=== PATIENT | male | born 1965 | race Caucasian/White ===

== ENCOUNTER 2022-05-27 21:45 | Inpatient (IN) | payer OTHER ==
[~2022-05-27] VITALS: Ht 182.9 cm; Wt 85.7 kg
[2022-05-27] MEDS ORDERED: IV NS 0.9% 1,000 ML BAG IV ONE (22:00)
--- NOTE | 2022-05-27 22:08 | NUR ---
Patient bibra from home, high blood glucose, reading high n the glucometer. On room air, breathing evenly and unlabored. Alert and oriented x 4, verbally responsive and able to make needs known. IV intact and patent, blood drawned and sent to lab. connected to the monitor and pulse ox. Will continue to monitor accoridngly.
[2022-05-27 22:17] LABS: BASOPHILS # (AUTO) 0.1 K/uL (0.0-0.2); BASOPHILS % (AUTO) 0.6 % (0.0-2.0); EOSINOPHILS % (AUTO) 1.2 % (0.0-6.0); HEMATOCRIT 41 % (39-51); HEMOGLOBIN 12.9 g/dL (13.5-17.5); LYMPHOCYTES # (AUTO) 2.1 K/uL (0.8-4.8); LYMPHOCYTES % (AUTO) 17.8 % (20.0-44.0); MEAN CORPUSCULAR HGB CONC 32 g/dl (31.0-36.0); MEAN CORPUSCULAR VOLUME 84 fL (80-96); MONOCYTES # (AUTO) 1.1 K/uL (0.1-1.30); MONOCYTES % (AUTO) 9.3 % (2.0-12.0); NEUTROPHILS # (AUTO) 8.4 K/uL (1.8-8.9); NEUTROPHILS % (AUTO) 71.1 % (43.0-81.0); PLATELET COUNT (AUTO) 258 K/uL (150-450); RED BLOOD CELL COUNT(AUTO) 4.88 MIL/uL (4.5-6.0); WHITE BLOOD COUNT (AUTO) 11.8 K/uL (4.3-11.0)
[2022-05-27 22:35] LABS: ALANINE AMINOTRANSFERASE 92 U/L (12-78); ALBUMIN 2.8 g/dL (3.4-5.0); ALKALINE PHOSPHATASE 403 U/L (46-116); ASPARTATE AMINOTRANSFERASE 49 U/L (15-37); BILIRUBIN,DIRECT 0.1 mg/dL (0.0-0.2); BILIRUBIN,TOTAL 0.5 mg/dL (0.2-1.0); CALCIUM, SERUM 8.2 mg/dL (8.5-10.1); CARBON DIOXIDE 26 mmol/L (21-32); CHLORIDE 81 mmol/L (98-107); CREATININE 1.5 mg/dL (0.6-1.3); LIPASE 302 U/L (73-393); POTASSIUM 4.9 mmol/L (3.5-5.1); TOTAL PROTEIN, SERUM 7.1 g/dL (6.4-8.2); UREA NITROGEN, BLOOD 52 mg/dL (7-18)
[2022-05-27 22:41] LABS: ABG BASE EXCESS -2.8 mmol/L; ABG PCO2 41.3 mmHg (35.0-45.0); ABG PH 7.355 (7.350-7.450); ABG PO2 79.9 mmHg (75.0-100.0); COHb 0.6 % (0.5-1.5); MetHb 0.3 % (0.0-1.5); O2Hb 93.2 % (94.0-97.0); SITE, ABG Right Radial; VENT MODE, BG ROOM AIR
[2022-05-27 22:41] LABS: SODIUM SERUM 113 mmol/L (136-145)
[2022-05-27 22:42] LABS: GLUCOSE > 500 mg/dL (74-106)
--- NOTE | 2022-05-27 22:58 | NUR ---
urine collected and sent to lab.
[2022-05-27] MEDS ORDERED: INSULIN REGULAR, HUMAN 100 UNIT/ML 10 ML VIAL ONE (22:59)
[2022-05-27] MEDS ORDERED: INSULIN REGULAR, HUMAN 100 UNIT/ML 10 ML VIAL SQ ONE (23:00)
[2022-05-27 23:28] LABS: BILIRUBIN,URINE NEGATIVE (NEGATIVE); COLOR,URINE YELLOW (YELLOW); LEUKOCYTE ESTERASE ,URINE NEGATIVE (NEGATIVE); NITRITE, URINE POSITIVE (NEGATIVE); PROTEIN,URINE NEGATIVE (NEGATIVE); UGLUCOSE 3+ mg/dL (NEGATIVE); UROBILINOGEN,URINE 0.2 EU/dL (0.2)
[2022-05-27 23:42] LABS: BACTERIA,URINE Rare /HPF (None Seen); RBC,URINE 0-2 /HPF (0-2); SQUAMOUS EPITHELIAL CELL,UR Few /HPF (None Seen); WBC,URINE 0-2 /HPF (0-3)
[2022-05-28] VITALS (19 sets, daily range): BP systolic 108–156; BP diastolic 56–99
[2022-05-28] MEDS ORDERED: IV NS 0.9% 1,000 ML BAG IV ONE (00:30)
[2022-05-28] MEDS ORDERED: ACETAMINOPHEN 325 MG TABLET PO PRN (01:00)
[2022-05-28] MEDS ORDERED: IV NS 0.9% 1,000 ML IV PRN (01:00)
[2022-05-28] MEDS ORDERED: DEXTROSE 50%-WATER 50 ML DISP.SYRIN IV PRN ×2 (01:00→13:30)
[2022-05-28] MEDS ORDERED: ZOLPIDEM TARTRATE 5 MG TABLET PO PRN (01:00)
[2022-05-28] MEDS ORDERED: MAG HYDROX/AL HYDROX/SIMETH 30 ML UDC PO PRN (01:00)
[2022-05-28] MEDS ORDERED: MAGNESIUM HYDROXIDE 30 ML UDC PO PRN (01:00)
[2022-05-28] MEDS ORDERED: ONDANSETRON HCL/PF 4 MG/2 ML VIAL IVP PRN (01:00)
[2022-05-28] MEDS ORDERED: Z GUARD REMEDY 4 OZ OINT TP PRN (01:00)
[2022-05-28 01:15] LABS: CHOLESTEROL 171 mg/dL (<200); HDL CHOLESTEROL 35 mg/dL (40-60); LDL 91 mg/dL (0-99); TRIGLYCERIDES 448 mg/dL (30-150)
--- NOTE | 2022-05-28 02:05 | NUR ---
icu 254
--- NOTE | 2022-05-28 03:04 | NUR ---
wheeled patient via gurney accpanied by RN and emet in no distress. RN assigned at bedside to continue care.
[2022-05-28] MEDS: IV NS 0.9% 1,000 ML IV PRN ×2 (03:26→09:08)
[2022-05-28] MEDS: BLOOD SUGAR DIAGNOSTIC 1 EACH STRIP IN SCH ×6 (05:00→22:51)
[2022-05-28 05:03] LABS: BASOPHILS # (AUTO) 0.1 K/uL (0.0-0.2); BASOPHILS % (AUTO) 0.4 % (0.0-2.0); EOSINOPHILS % (AUTO) 1.9 % (0.0-6.0); HEMATOCRIT 37 % (39-51); HEMOGLOBIN 12.3 g/dL (13.5-17.5); LYMPHOCYTES # (AUTO) 4.1 K/uL (0.8-4.8); LYMPHOCYTES % (AUTO) 29.1 % (20.0-44.0); MEAN CORPUSCULAR HGB CONC 33 g/dl (31.0-36.0); MEAN CORPUSCULAR VOLUME 80 fL (80-96); MONOCYTES # (AUTO) 1.2 K/uL (0.1-1.30); MONOCYTES % (AUTO) 8.3 % (2.0-12.0); NEUTROPHILS # (AUTO) 8.5 K/uL (1.8-8.9); NEUTROPHILS % (AUTO) 60.3 % (43.0-81.0); PLATELET COUNT (AUTO) 268 K/uL (150-450); RED BLOOD CELL COUNT(AUTO) 4.68 MIL/uL (4.5-6.0); WHITE BLOOD COUNT (AUTO) 14.1 K/uL (4.3-11.0)
[2022-05-28 05:22] LABS: CALCIUM, SERUM 8.6 mg/dL (8.5-10.1); PHOSPHORUS 3.5 mg/dL (2.5-4.9); POTASSIUM 4.3 mmol/L (3.5-5.1)
[2022-05-28] MEDS: INSULIN REGULAR, HUMAN 100 UNIT/ML 3 ML VIAL SQ PRN ×3 (06:16→16:41)
--- NOTE | 2022-05-28 07:00 | NUR ---
CHILD LIFE THERAPIST OPENING NOTES: RECEIVED PT IN BED ASLEEP A/O X 4 ON ROOM AIR O2SAT 99% NO SOB NOTED.BREATHING EVEN AND UNLABORED,SINUS RHYTHM ON MONITOR, IV ACCESS ON LFA #18 G AND RAC #18 G PATENT AND FLUSHING WELL, IV NS RUNNING AT 200 ML/HR, SAFETY MEASURES IN PLACE, BED IN LOW AND LOCKED POSITION,SR UP X 2, CALL LIGHT WITHIN REACH, WILL CONTINUE TO MONITOR
--- NOTE | 2022-05-28 07:34 | NUR ---
RN NOTES: WHILE PT IS ASLEEP HE MOVED HIS LEFT ARM, IV LINE CAME OUT ACCIDENTALLY, USED RIGHT AC IV ACCESS TO RUN THE IV FLUIDS
[2022-05-28] MEDS ORDERED: PANTOPRAZOLE 40 MG VIAL IV SCH (09:00)
[2022-05-28] MEDS: INSULIN GLARGINE, 100 UNIT/ML CARTRIDGE SQ SCH ×2 (09:04→22:29)
[2022-05-28] MEDS ORDERED: INSU100V7 SQ (11:02)
[2022-05-28] MEDS ORDERED: INSU100V3 SQ (11:02)
--- NOTE | 2022-05-28 13:08 | NUR ---
RN NOTES: BLOOD SUGAR CHECKED 57 MG/DL.REPEATED TEST 60 MG/DL ,D50% IV GIVEN AND LEFT MESSAGE TO DR EMILIA ZARATE
--- NOTE | 2022-05-28 13:10 | NUR ---
PER NURSING DIAGNOSTIC ASSISTANT NADIR, SPOKE TO DR. EMILIA WILKINS, PATIENT STABLE TO TRANSFER MEDICAL FLOOR.
[2022-05-28] MEDS ORDERED: IV D5/0.45 NACL 1,000 ML IV PRN (13:30)
[2022-05-28] MEDS ORDERED: *INSULIN REGULAR(HUMULIN R)HUM 100 UNIT/ML VIAL SQ PRN (13:30)
[2022-05-28] MEDS: IV D5/ 0.9% NACL 1,000 ML IV PRN (13:51)
--- NOTE | 2022-05-28 14:19 | NUR ---
RN NOTES: RECHECKED BLOOD SUGAR 140 MG/DL, CHARGE NURSE CHANGED IV FLUID TO D5NS AT 100 ML/HR RUNNING, TRANSFERRED PT TO MED SURG ROOM 117-1, REPORT AND BELONGING GIVEN TO AFSANEH VERA, DR EMILIA MACIAS FOR WOUND CONSULT DUE TO RIGHT FOOT WOUND
--- NOTE | 2022-05-28 14:25 | NUR ---
RN NOTE RECEIVED PATIENT FROM ICU @1415 TRANSPORTED VIA BED, ACCOMPANIED BY CHUY CORTES. PATIENT IS AWAKE, A/O X4, VERBALLY RESPONSIVE AND ABLE TO MAKE NEEDS KNOWN. ON ROOM AIR, NO SOB NOTED, BREATHING EVEN AND UNLABORED. DENIES ANY PAIN AT THIS TIME. NOTED WITH PERIPHERAL LINE ON LEFT FOREARM #22G, INTACT AND PATENT WITH D5NS @100ML/HR RUNNING. ALL BELONGINGS ACCOUNTED FOR. VITAL SIGNS TAKEN AND RECORDED. NOTED WITH RIGHT PLANTAR WOUND, WOUND CARE CONSULT IN PLACE. ROUTINE ADMISSION CARE RENDERED. SAFETY MEASURE IN PLACE. BED IN LOW AND LOCKED POSITION, BED ALARM ON, SIDE RAILS UP X2, CALL LIGHT PLACED WITHIN EASY REACH. WILL CONTINUE TO MONITOR PATIENT.
[2022-05-28] MEDS ORDERED: BLOOD SUGAR DIAGNOSTIC 1 EACH STRIP VI SCH (17:30)
--- NOTE | 2022-05-28 18:49 | NUR ---
RN CLOSING NOTE PATIENT RESTING COMFORTABLY IN BED. A/O X4, VERBALLY RESPONSIVE AND ABLE TO MAKE NEEDS KNOWN. ON ROOM AIR, BREATHING EVEN AND UNLABORED. DENIES ANY PAIN AT THIS TIME. IV LINE ON LEFT FOREARM #22G, INTACT AND PATENT WITH D5NS @100ML/HR RUNNING. SAFETY MEASURE MAINTAINED, BED IN LOW AND LOCKED POSITION, BED ALARM ON. SIDE RAILS UP X2, CALL LIGHT PLACED WITHIN EASY REACH. WILL ENDORSE TO NEXT SHIFT FOR CONTINUITY OF CARE.
--- NOTE | 2022-05-28 19:45 | NUR ---
MS RN OPENING NOTE RECEIVED PATIENT IN BED; AWAKE, ALERT AND ORIENTED X 4. ON ROOM AIR; TOLERATING WELL SATURATING @ 97%. AFEBRILE. NOT IN ANY FORM OF RESPIRATORY OR CARDIAC DISTRESS. NO C/O ANY PAIN OR DISCOMFORT. WITH IV ACCESS ON LEFT FOREARM 22g; PATENT AND INTACT RUNNING WITH D5 NS 1L REGULATED @ 100 ML/HR; FLUSHES WELL. SAFETY PRECAUTIONS IMPLEMENTED: CALL LIGHT AND TABLE WITHIN REACH, SIDE RAILS UP X 2, BED IN LOWEST LOCKED POSITION. WILL CONTINUE TO MONITOR THROUGHOUT SHIFT.
[2022-05-28] MEDS ORDERED: DESMOPRESSIN 4 MCG/ML AMPUL SQ STA ×2 (20:16→22:54)
--- NOTE | 2022-05-28 22:21 | NUR ---
RN NOTE BLOOD SUGAR CHECKED: 471 MG/DL. RECHECKED AGAIN WITH RESULT OF 546 MG/DL. CALLED AND NOTIFIED SPECIAL SERVICE OFFICER HOSPITALIST RAMYA CHAU NP. WITH ORDER TO GIVE 15 UNITS REGULAR INSULIN SQ. WILL CARRY OUT.
--- NOTE | 2022-05-28 22:25 | NUR ---
RN NOTE BS: 546 MG/DL. 15 UNITS OF REGULAR INSULIN GIVEN SQ AND 11 UNITS GIVEN SQ @ 2229. KEPT COMFORTABLE IN BED. WILL CONTINUE TO MONITOR.
[2022-05-28] MEDS ORDERED: DESMOPRESSIN 4 MCG/ML AMPUL ONE (23:19)
[2022-05-29 05:00] VITALS: BP 135/76
[2022-05-29] MEDS: IV D5/ 0.9% NACL 1,000 ML IV PRN (06:28)
[2022-05-29 06:50] LABS: BASOPHILS # (AUTO) 0.1 K/uL (0.0-0.2); BASOPHILS % (AUTO) 0.4 % (0.0-2.0); EOSINOPHILS % (AUTO) 1.8 % (0.0-6.0); HEMATOCRIT 37 % (39-51); HEMOGLOBIN 12.2 g/dL (13.5-17.5); LYMPHOCYTES # (AUTO) 4.2 K/uL (0.8-4.8); LYMPHOCYTES % (AUTO) 33.1 % (20.0-44.0); MEAN CORPUSCULAR HGB CONC 33 g/dl (31.0-36.0); MEAN CORPUSCULAR VOLUME 80 fL (80-96); MONOCYTES # (AUTO) 0.9 K/uL (0.1-1.30); MONOCYTES % (AUTO) 7.4 % (2.0-12.0); NEUTROPHILS # (AUTO) 7.3 K/uL (1.8-8.9); NEUTROPHILS % (AUTO) 57.3 % (43.0-81.0); PLATELET COUNT (AUTO) 266 K/uL (150-450); RED BLOOD CELL COUNT(AUTO) 4.62 MIL/uL (4.5-6.0); WHITE BLOOD COUNT (AUTO) 12.8 K/uL (4.3-11.0)
--- NOTE | 2022-05-29 06:54 | NUR ---
MS RN CLOSING NOTE PATIENT IN BED; AWAKE, A/O X 4. STABLE ON ROOM AIR. IN NO ACUTE DISTRESS. WITH IV ACCESS ON LEFT FOREARM 22g; PATENT AND INTACT RUNNING WITH D5 NS 1L REGULATED @ 100 ML/HR; FLUSHING WELL. SAFETY PRECAUTIONS IN PLACE: CALL LIGHT AND TABLE WITHIN REACH, SIDE RAILS UP X 2, BED IN LOWEST LOCKED POSITION. ENDORSED TO MORNING SHIFT FOR TUCKER.
[2022-05-29 07:19] LABS: CALCIUM, SERUM 8.4 mg/dL (8.5-10.1); CREATININE 0.9 mg/dL (0.6-1.3); MAGNESIUM 1.8 mg/dL (1.8-2.4); PHOSPHORUS 3.1 mg/dL (2.5-4.9); POTASSIUM 3.8 mmol/L (3.5-5.1)
--- NOTE | 2022-05-29 07:20 | NUR ---
AUTOMOBILE INSPECTOR OPENING NOTES Received pt awake in bed AOx4. No complaints of pain or discomfort at this time. Pt is on RA and tolerating it well. IV access on LFA 22G running D5 NS @ 100cc/hr. HOB elevated to pts comfort. Siderails up at all times x2. Call light within reach. Will continue to monitor.
[2022-05-29] MEDS: BLOOD SUGAR DIAGNOSTIC 1 EACH STRIP IN SCH ×3 (07:52→16:53)
[2022-05-29 08:00] VITALS: BP 134/77
[2022-05-29] MEDS: INSULIN GLARGINE, 100 UNIT/ML CARTRIDGE SQ SCH (08:14)
[2022-05-29] MEDS: INSULIN REGULAR, HUMAN 100 UNIT/ML 3 ML VIAL SQ PRN ×3 (08:17→16:54)
--- NOTE | 2022-05-29 08:37 | NUR ---
WOUND CARE CONSULT: PT PRESENTS WITH RT PLANTAR FOOT ULCER, PRESENT ON ADMISSION. DR ADAMS CALLED FOR DPM CONSULT. IN AGREEMENT WITH PLAN OF CARE.
--- NOTE | 2022-05-29 12:46 | NUR ---
SOLVENT RECOVERER NOTES Dr. Cash finished debridement on pt right plantar foot wound. Tolerated procedure well.
[2022-05-29 16:00] VITALS: BP 136/74
--- NOTE | 2022-05-29 17:20 | NUR ---
PROPERTY DISPOSAL MANAGER NOTES Pt discharged to home with daughter. Daughter Елена came with to pic up pt. Discharge paperwork given to pt. Explained the importance of a good diabetic diet and insulin and pt verbalized understanding. IV access taken out.
[2022-05-30] MEDS ORDERED: PANTOPRAZOLE 40 MG TABLET.DR PO SCH (07:30)
[2022-05-30] MEDS ORDERED: THERAHONEY GEL 1.5 OZ TUBE TP SCH (09:00)
== END 2022-05-29 17:05 | disposition home or self-care (01) | DRG 951 ==
LOC: ER 21:47 → ICU 05-28 02:16 → MEDSG1 05-28 13:54
PROVIDERS: ADMIT Nurse Practitioner Acute Care
PROC: 0KBV0ZZ Excision of Right Foot Muscle, Open Approach (ICD-10-PCS; principal; 2022-05-29)
DX: E11.00 Type 2 diabetes mellitus with hyperosmolarity without nonketotic hyperglycemic-hyperosmolar coma (NKHHC) (principal); N17.0 Acute kidney failure with tubular necrosis; E11.621 Type 2 diabetes mellitus with foot ulcer; E11.42 Type 2 diabetes mellitus with diabetic polyneuropathy; E87.1 Hypo-osmolality and hyponatremia; Z59.00 Homelessness unspecified; Z91.199 Patient's noncompliance with other medical treatment and regimen due to unspecified reason; Z20.822 Contact with and (suspected) exposure to COVID-19; L97.519 Non-pressure chronic ulcer of other part of right foot with unspecified severity; Z91.119 Patient's noncompliance with dietary regimen due to unspecified reason; Z91.14 Patient's other noncompliance with medication regimen; Z79.4 Long term (current) use of insulin; R63.1 Polydipsia
CPT/HCPCS: 36415; 36600; 71045-TC; 76770-TC; 80048-TC; 80061-TC; 80076-TC; 81001; 82010-TC; 82803-TC; 82962-TC; 83690-TC; 83735-TC; 84100-TC; 85025-TC; 87081-TC; 87086-TC; C9113; C9803; G0378; J1815; J2597; J3490; J7030; J7042

== ENCOUNTER 2022-06-14 01:48 | Emergency (ER) | payer OTHER ==
[~2022-06-14] VITALS: Ht 180.3 cm; Wt 81.6 kg
[~2022-06-14 01:48] MED LIST: INSU100V3 SQ; INSU100V7 SQ
--- NOTE | 2022-06-14 01:59 | NUR ---
[id number] FROM HOME WITH CC OF ABDOMINAL PAIN AND VOMITING (SEVERAL EPISODE) BS 391 PHYSICIAN, pt placed on monitor. not in acute distress, no sob. pending er provider audra
[2022-06-14] MEDS ORDERED: ONDANSETRON HCL/PF 4 MG/2 ML VIAL ONE ×2 (02:15→06:51)
[2022-06-14] MEDS ORDERED: DICYCLOMINE HCL INJ 20 MG/2 ML AMPUL IM ONE ×2 (02:15→02:30)
[2022-06-14] MEDS ORDERED: MORPHINE SULFATE INJ 4 MG/ML DISP.SYRIN ONE ×2 (02:16→06:51)
[2022-06-14] MEDS ORDERED: MORPHINE SULFATE INJ 2 MG/ML DISP.SYRIN IV ONE ×2 (02:30→07:00)
[2022-06-14] MEDS ORDERED: IV NS 0.9% 1,000 ML BAG IV ONE (02:30)
[2022-06-14] MEDS ORDERED: ONDANSETRON HCL/PF 4 MG/2 ML VIAL IVP ONE (02:30)
--- NOTE | 2022-06-14 02:33 | NUR ---
LAC #20G S/L BLOOD COLLECTED AND SENT TO LAB. METAL TREATER AT PT'S BEDSIDE
[2022-06-14 02:50] LABS: BASOPHILS % (AUTO) 0.3 % (0.0-2.0); EOSINOPHILS % (AUTO) 0.3 % (0.0-6.0); HEMATOCRIT 46 % (39-51); HEMOGLOBIN 14.4 g/dL (13.5-17.5); LYMPHOCYTES # (AUTO) 1.4 K/uL (0.8-4.8); LYMPHOCYTES % (AUTO) 10.7 % (20.0-44.0); MEAN CORPUSCULAR HGB CONC 32 g/dl (31.0-36.0); MEAN CORPUSCULAR VOLUME 86 fL (80-96); MONOCYTES # (AUTO) 0.7 K/uL (0.1-1.30); MONOCYTES % (AUTO) 5.5 % (2.0-12.0); NEUTROPHILS # (AUTO) 11.1 K/uL (1.8-8.9); NEUTROPHILS % (AUTO) 83.2 % (43.0-81.0); PLATELET COUNT (AUTO) 314 K/uL (150-450); WHITE BLOOD COUNT (AUTO) 13.3 K/uL (4.3-11.0)
[2022-06-14 03:15] LABS: CARBON DIOXIDE 27 mmol/L (21-32); CHLORIDE 98 mmol/L (98-107); CREATININE 1.5 mg/dL (0.6-1.3); GLUCOSE 306 mg/dL (74-106); POTASSIUM 4.9 mmol/L (3.5-5.1); SODIUM SERUM 134 mmol/L (136-145); UREA NITROGEN, BLOOD 33 mg/dL (7-18)
[2022-06-14 03:21] LABS: ALANINE AMINOTRANSFERASE 33 U/L (12-78); ALBUMIN 3.5 g/dL (3.4-5.0); ALKALINE PHOSPHATASE 139 U/L (46-116); ASPARTATE AMINOTRANSFERASE 18 U/L (15-37); BILIRUBIN,DIRECT 0.2 mg/dL (0.0-0.2); BILIRUBIN,TOTAL 0.8 mg/dL (0.2-1.0); LIPASE 309 U/L (73-393); TOTAL PROTEIN, SERUM 8.3 g/dL (6.4-8.2)
[2022-06-14 06:38] LABS: BILIRUBIN,URINE NEGATIVE (NEGATIVE); COLOR,URINE YELLOW (YELLOW); LEUKOCYTE ESTERASE ,URINE NEGATIVE (NEGATIVE); NITRITE, URINE NEGATIVE (NEGATIVE); PH,URINE 5.5 (5.0-8.0); PROTEIN,URINE TRACE mg/dl (NEGATIVE); UGLUCOSE 3+ mg/dL (NEGATIVE); UROBILINOGEN,URINE 0.2 EU/dL (0.2)
[2022-06-14] MEDS ORDERED: IV NS 0.9% 1,000 ML IV ONE (07:00)
[2022-06-14] MEDS ORDERED: ONDANSETRON HCL/PF 4 MG/2 ML VIAL IV ONE (07:00)
--- NOTE | 2022-06-14 07:53 | NUR ---
THE PATIENT IS RECEIVED IN ER BED #9. SLEEPING. RESPONSIVE TO VERBAL STIMULI. RESPIRATION REGULAR AND UNLABORED. WILL CONTINUE TO MONITOR THE PATIENT.
[2022-06-14 08:26] LABS: BACTERIA,URINE Rare /HPF (None Seen); RBC,URINE 0-2 /HPF (0-2); SQUAMOUS EPITHELIAL CELL,UR Few /HPF (None Seen); WBC,URINE 0-2 /HPF (0-3)
[2022-06-14] MEDS ORDERED: HYDR-4209 PO (09:45)
[2022-06-14] MEDS ORDERED: ONDA4TAB5 PO (09:45)
[2022-06-14] MEDS ORDERED: FAMO-131 PO (09:45)
--- NOTE | 2022-06-14 09:57 | NUR ---
Note undone in EDM - 06/14/22 at 0959 by VALENTE The patient is alert and oriented x4. In room air and denies SOB. Respiration regular and unlabored. Denies pain. IV removed. Catheter intact and site benign. Pressure and 4x4 applied to site. No bleeding noted.Patient discharged to home in stable condition. Written and verbal after care instructions given. Patient verbalizes understanding of instruction.
[2022-06-14] MEDS ORDERED: HYDROCODONE/APAP 5/325MG TABLET PO ONE (10:00)
[2022-06-14] MEDS ORDERED: MAG HYDROX/AL HYDROX/SIMETH 30 ML UDC PO ONE (10:00)
[2022-06-14] MEDS ORDERED: LIDOCAINE VISCOUS 2% UD 15 ML UDC MM ONE (10:00)
[2022-06-14] MEDS ORDERED: HYDROCODONE/APAP 5/325MG TABLET ONE (10:03)
[2022-06-14 10:07] VITALS: BP 155/87
--- NOTE | 2022-06-14 10:07 | NUR ---
The patient is alert and oriented x4. IV removed. Catheter intact and site benign. Pressure and 4x4 applied to site. No bleeding noted.Patient discharged to home in stable condition. Written and verbal after care instructions given. Patient verbalizes understanding of instruction.
== END 2022-06-14 10:08 | disposition home or self-care (01) ==
LOC: ER 01:50
DX: E11.65 Type 2 diabetes mellitus with hyperglycemia (principal); N17.9 Acute kidney failure, unspecified; R10.84 Generalized abdominal pain; Z79.4 Long term (current) use of insulin; Z88.8 Allergy status to other drugs, medicaments and biological substances; Z60.2 Problems related to living alone
CPT/HCPCS: 99285; 74176; 96374; 76705; 96361; 96375; 93005; 96376; 85025; 80048; 83690; 80076; 81001; 36415; 84484 ×2; 85730; 82962; J2270 ×2; J2405 ×2; J7030; A4223; J0500

== ENCOUNTER 2022-08-09 01:07 | Inpatient (IN) | payer OTHER ==
[~2022-08-09] VITALS: Ht 180.3 cm; Wt 88.5 kg
[~2022-08-09 01:07] MED LIST changes: +FAMO-131 PO; +HYDR-4209 PO; +ONDA4TAB5 PO
[2022-08-09] MEDS ORDERED: VANCOMYCIN 1 GM in IV D5W 250 ML IV ONE (02:30)
[2022-08-09] MEDS ORDERED: PIPERACILLIN /TAZOBACTAM 3.375 G in IV D5W 50 ML IV ONE (02:30)
[2022-08-09] MEDS ORDERED: CT SWABBABLE VALVE TRANS SET 1 EA INFUS.SET MC ONE (02:43)
[2022-08-09] MEDS ORDERED: IV NS 0.9% 250 ML IV ONE (02:43)
[2022-08-09] MEDS ORDERED: IOHEXOL-300 100 ML VIAL IV ONE (02:43)
[2022-08-09] MEDS ORDERED: VANCOMYCIN 1 GM /D5W 250 ML PB IV ONE (03:16)
[2022-08-09] MEDS ORDERED: PIPERACI/TAZO 3.375GM/D5W 50ML PB IV ONE (03:17)
[2022-08-09 03:19] LABS: BASOPHILS # (AUTO) 0.1 K/uL (0.0-0.2); BASOPHILS % (AUTO) 0.7 % (0.0-2.0); EOSINOPHILS % (AUTO) 2.7 % (0.0-6.0); HEMATOCRIT 37 % (39-51); HEMOGLOBIN 11.7 g/dL (13.5-17.5); LYMPHOCYTES # (AUTO) 2.2 K/uL (0.8-4.8); LYMPHOCYTES % (AUTO) 14.8 % (20.0-44.0); MEAN CORPUSCULAR HGB CONC 32 g/dl (31.0-36.0); MEAN CORPUSCULAR VOLUME 84 fL (80-96); MONOCYTES # (AUTO) 1.6 K/uL (0.1-1.30); MONOCYTES % (AUTO) 10.5 % (2.0-12.0); NEUTROPHILS # (AUTO) 10.7 K/uL (1.8-8.9); NEUTROPHILS % (AUTO) 71.3 % (43.0-81.0); PLATELET COUNT (AUTO) 267 K/uL (150-450); RED BLOOD CELL COUNT(AUTO) 4.34 MIL/uL (4.5-6.0); WHITE BLOOD COUNT (AUTO) 15.1 K/uL (4.3-11.0)
[2022-08-09 04:03] LABS: CALCIUM, SERUM 8.4 mg/dL (8.5-10.1); CREATININE 1.1 mg/dL (0.6-1.3); POTASSIUM 3.9 mmol/L (3.5-5.1)
[2022-08-09] MEDS ORDERED: ACETAMINOPHEN 325 MG TABLET PO PRN (06:00)
[2022-08-09] MEDS ORDERED: HYDROCODONE/APAP 5/325MG TABLET PO PRN (06:00)
[2022-08-09] MEDS ORDERED: IV NS 0.9% 1,000 ML IV PRN (06:00)
[2022-08-09] MEDS ORDERED: DEXTROSE 50%-WATER 50 ML DISP.SYRIN IV PRN (06:00)
[2022-08-09] MEDS ORDERED: ONDANSETRON HCL/PF 4 MG/2 ML VIAL IVP PRN (06:00)
[2022-08-09 06:33] LABS: BILIRUBIN,DIRECT 0.1 mg/dL (0.0-0.2); BILIRUBIN,TOTAL 0.4 mg/dL (0.2-1.0)
[2022-08-09 09:20] LABS: CALCIUM, SERUM 8.4 mg/dL (8.5-10.1); CREATININE 1.1 mg/dL (0.6-1.3); POTASSIUM 3.9 mmol/L (3.5-5.1)
[2022-08-09 09:24] LABS: ALBUMIN 1.8 g/dL (3.4-5.0); BILIRUBIN,TOTAL 0.3 mg/dL (0.2-1.0); TOTAL PROTEIN, SERUM 6.5 g/dL (6.4-8.2)
[2022-08-09] MEDS: PIPERACILLIN /TAZOBACTAM 3.375 G in IV D5W 50 ML IV SCH ×3 (09:32→18:04)
[2022-08-09] MEDS: BLOOD SUGAR DIAGNOSTIC 1 EACH STRIP IN SCH ×3 (09:34→16:59)
[2022-08-09] MEDS: INSULIN REGULAR, HUMAN 100 UNIT/ML 3 ML VIAL SQ PRN ×3 (09:37→17:01)
[2022-08-09] MEDS: INSULIN GLARGINE, 100 UNIT/ML CARTRIDGE SQ SCH ×2 (10:23→17:04)
[2022-08-09] MEDS ORDERED: INSU100V27 SQ (10:30)
[2022-08-09 11:09] VITALS: BP 139/76
[2022-08-09 16:00] VITALS: BP 143/74
[2022-08-09] MEDS ORDERED: VANCOMYCIN 1.25 GM in IV D5W 250 ML IV SCH (16:00)
[2022-08-09] MEDS ORDERED: INSULIN GLARGINE, 100 UNIT/ML CARTRIDGE SQ SCH (22:00)
== END 2022-08-09 18:41 | disposition left against medical advice (07) | DRG 383 ==
LOC: ER 01:10 → TELE-TD 08:23 → MEDSG1 08:29
PROVIDERS: ADMIT Internal Medicine; ATTEND Internal Medicine
DX: L03.211 Cellulitis of face (principal); D72.829 Elevated white blood cell count, unspecified; E11.65 Type 2 diabetes mellitus with hyperglycemia; I10 Essential (primary) hypertension; L02.01 Cutaneous abscess of face; Z79.4 Long term (current) use of insulin; W19.XXXA Unspecified fall, initial encounter; Y93.9 Activity, unspecified; Y92.009 Unspecified place in unspecified non-institutional (private) residence as the place of occurrence of the external cause
CPT/HCPCS: 36415; 70487-TC; 80048-TC; 80053-TC; 82247-TC; 82248-TC; 82962-TC; 83605-TC; 85025-TC; 85730-TC; 87040-TC; A4223; G0378; J1815; J2543; J3370; J7030; J7050; J7060; Q9967

== ENCOUNTER 2022-08-14 11:38 | Inpatient (IN) | payer OTHER ==
[~2022-08-14] VITALS: Ht 180.3 cm; Wt 88.0 kg
[~2022-08-14 11:38] MED LIST changes: -FAMO-131 PO; -HYDR-4209 PO; +INSU100V27 SQ; -INSU100V3 SQ; -ONDA4TAB5 PO
--- NOTE | 2022-08-14 12:00 | NUR ---
BIB RELATIVE abdominal discomfort, nausea and vomiting since sunday states started taking tetracycline sunday for cellulitis. MD AT BEDSIDE FOR EVAL.
--- NOTE | 2022-08-14 12:07 | NUR ---
LEAD OXIDE MILL TENDER. AT BEDSIDE
[2022-08-14 12:26] LABS: BASOPHILS # (AUTO) 0.1 K/uL (0.0-0.2); BASOPHILS % (AUTO) 0.7 % (0.0-2.0); EOSINOPHILS % (AUTO) 1.9 % (0.0-6.0); HEMATOCRIT 41 % (39-51); HEMOGLOBIN 13.2 g/dL (13.5-17.5); LYMPHOCYTES # (AUTO) 2.1 K/uL (0.8-4.8); LYMPHOCYTES % (AUTO) 11.4 % (20.0-44.0); MEAN CORPUSCULAR HGB CONC 32 g/dl (31.0-36.0); MEAN CORPUSCULAR VOLUME 84 fL (80-96); MONOCYTES # (AUTO) 1.7 K/uL (0.1-1.30); MONOCYTES % (AUTO) 9.1 % (2.0-12.0); NEUTROPHILS # (AUTO) 14.2 K/uL (1.8-8.9); NEUTROPHILS % (AUTO) 76.9 % (43.0-81.0); PLATELET COUNT (AUTO) 382 K/uL (150-450); RED BLOOD CELL COUNT(AUTO) 4.91 MIL/uL (4.5-6.0); WHITE BLOOD COUNT (AUTO) 18.4 K/uL (4.3-11.0)
[2022-08-14 12:43] LABS: CALCIUM, SERUM 9.4 mg/dL (8.5-10.1); CREATININE 1.2 mg/dL (0.6-1.3); POTASSIUM 4.4 mmol/L (3.5-5.1)
--- NOTE | 2022-08-14 12:50 | NUR ---
GLUCOSE 616, PRIMARY RN INFORMED.
[2022-08-14] MEDS ORDERED: IV NS 0.9% 1,000 ML BAG IV ONE ×2 (13:00→13:30)
[2022-08-14 13:03] LABS: ALBUMIN 2.5 g/dL (3.4-5.0); BILIRUBIN,DIRECT 0.1 mg/dL (0.0-0.2); BILIRUBIN,TOTAL 0.5 mg/dL (0.2-1.0); TOTAL PROTEIN, SERUM 8.1 g/dL (6.4-8.2)
--- NOTE | 2022-08-14 13:15 | NUR ---
U/S TECH AT BEDSIDE
[2022-08-14] MEDS ORDERED: VANCOMYCIN 1 GM in IV D5W 250 ML IV ONE (13:30)
[2022-08-14] MEDS ORDERED: PIPERACILLIN /TAZOBACTAM 3.375 G in IV D5W 50 ML IV ONE (13:30)
[2022-08-14] MEDS ORDERED: INSULIN REGULAR, HUMAN 100 UNIT/ML 10 ML VIAL SQ ONE (13:30)
[2022-08-14] MEDS ORDERED: INSULIN REGULAR, HUMAN 100 UNIT/ML 10 ML VIAL ONE (13:33)
--- NOTE | 2022-08-14 13:43 | NUR ---
URINE SAMPLE SENT TO LAB. COMPOUND WORKER AT BEDSIDE FOR BLD. C/S.
[2022-08-14] MEDS ORDERED: PIPERACI/TAZO 3.375GM/D5W 50ML PB IV ONE (13:46)
[2022-08-14] MEDS ORDERED: VANCOMYCIN 1 GM /D5W 250 ML PB IV ONE (13:46)
[2022-08-14 14:28] LABS: BILIRUBIN,URINE NEGATIVE (NEGATIVE); COLOR,URINE YELLOW (YELLOW); LEUKOCYTE ESTERASE ,URINE NEGATIVE (NEGATIVE); NITRITE, URINE NEGATIVE (NEGATIVE); PROTEIN,URINE TRACE mg/dl (NEGATIVE); UGLUCOSE 3+ mg/dL (NEGATIVE); UROBILINOGEN,URINE 0.2 EU/dL (0.2)
[2022-08-14] MEDS ORDERED: DEXTROSE 50%-WATER 50 ML DISP.SYRIN IV PRN (15:00)
[2022-08-14] MEDS ORDERED: ACETAMINOPHEN 325 MG TABLET PO PRN (15:00)
[2022-08-14] MEDS ORDERED: MAGNESIUM HYDROXIDE 30 ML UDC PO PRN (15:00)
[2022-08-14] MEDS ORDERED: Z GUARD REMEDY 4 OZ OINT TP PRN (15:00)
[2022-08-14] MEDS ORDERED: ONDANSETRON HCL/PF 4 MG/2 ML VIAL IVP PRN (15:00)
[2022-08-14] MEDS ORDERED: MAG HYDROX/AL HYDROX/SIMETH 30 ML UDC PO PRN (15:00)
--- NOTE | 2022-08-14 15:08 | NUR ---
REPORT GIVEN TO ELIAZAR VERA ROOM 114-1 FOR TUCKER
[2022-08-14 15:31] LABS: BACTERIA,URINE None seen /HPF (None Seen); SQUAMOUS EPITHELIAL CELL,UR 0-2 /HPF (None Seen); WBC,URINE 0-2 /HPF (0-3)
[2022-08-14] MEDS: BLOOD SUGAR DIAGNOSTIC 1 EACH STRIP IN SCH ×2 (17:29→21:48)
--- NOTE | 2022-08-14 17:43 | NUR ---
INSULIN NOT GIVEN D/T PATIENT IS NPO.
[2022-08-14] MEDS: IV NS 0.9% 1,000 ML IV PRN (17:46)
[2022-08-14] MEDS ORDERED: PIPERACILLIN /TAZOBACTAM 4.5 G in IV D5W 50 ML IV SCH (18:00)
--- NOTE | 2022-08-14 19:25 | NUR ---
RN NOTE Received pt in bed, alert, awake, orientedx4, verbally responsive. Denies pain or discomfort at this time. On room air, well jordyn, no sob, nad. Afebrile. PIV access om RAC #20G, patent, infusing NS at 125ml/hr, well tolerated. HOB elevated for comfort. Call light within easy reach. Safety precaution implemented, bed locked and in lowest position. Will continue plan of care.
[2022-08-14 20:00] VITALS: BP 146/89; TEMP 98.1
[2022-08-14 20:23] LABS: D-DIMER 1.19 mg/L(FEU (0.17-0.50)
[2022-08-14 20:35] LABS: THYROID STIMULATING HORMONE 0.743 uIU/mL (0.358-3.74)
[2022-08-14] MEDS: ZOSYN IVPB 3.375 G in IV D5W 50ml IV SCH (20:50)
--- NOTE | 2022-08-14 21:30 | NUR ---
RN NOTE Pt's blood sugar 326mg/dl, insulin sliding scale 16units of regular insulin and Lantus 11units. Clarified with SOAKER MEAT Roxanne Cox regarding pt's NPO status to prep pre-CT w/ contrast and NM HIDA in AM, per SHANNEN Cox to change pt's diet order to regular and administer all due insulin, then NPO PMN. Noted and carried out.
[2022-08-14] MEDS: INSULIN GLARGINE, 100 UNIT/ML CARTRIDGE SQ SCH (21:49)
[2022-08-14] MEDS: INSULIN REGULAR, HUMAN 100 UNIT/ML 3 ML VIAL SQ PRN (21:55)
[2022-08-15] VITALS: BP 150/82; TEMP 98.1
[2022-08-15] MEDS: BLOOD SUGAR DIAGNOSTIC 1 EACH STRIP IN SCH ×7 (01:49→20:57)
--- NOTE | 2022-08-15 01:49 | NUR ---
RN NOTE BS check 257mg/dl, insulin per sliding scale not given d/t pt on NPO to prep for CT w/ contrast abd, chest, pelvis and NM HIDA in AM. Pt is awake, alert, orientedx4, no change in LOC.
[2022-08-15] MEDS: INSULIN REGULAR, HUMAN 100 UNIT/ML 3 ML VIAL SQ PRN ×5 (01:50→21:02)
[2022-08-15] MEDS: ZOSYN IVPB 3.375 G in IV D5W 50ml IV SCH ×4 (01:50→20:18)
[2022-08-15 04:00] VITALS: BP 115/64; TEMP 98.4
--- NOTE | 2022-08-15 05:45 | NUR ---
RN NOTE BS check 185mg/dl, insulin per sliding scale not given d/t pt on NPO to prep for CT w/ contrast abd, chest, pelvis and NM HIDA in AM. Pt is awake, alert, orientedx4, no change in LOC.
[2022-08-15] MEDS: IV NS 0.9% 1,000 ML IV PRN ×2 (06:03→20:18)
[2022-08-15 06:54] LABS: BASOPHILS # (AUTO) 0.2 K/uL (0.0-0.2); BASOPHILS % (AUTO) 0.9 % (0.0-2.0); HEMATOCRIT 40 % (39-51); LYMPHOCYTES # (AUTO) 3.4 K/uL (0.8-4.8); LYMPHOCYTES % (AUTO) 20.6 % (20.0-44.0); MEAN CORPUSCULAR HGB CONC 32 g/dl (31.0-36.0); MEAN CORPUSCULAR VOLUME 84 fL (80-96); MONOCYTES # (AUTO) 1.3 K/uL (0.1-1.30); MONOCYTES % (AUTO) 7.9 % (2.0-12.0); NEUTROPHILS # (AUTO) 11.1 K/uL (1.8-8.9); NEUTROPHILS % (AUTO) 67.6 % (43.0-81.0); PLATELET COUNT (AUTO) 352 K/uL (150-450); RED BLOOD CELL COUNT(AUTO) 4.83 MIL/uL (4.5-6.0); WHITE BLOOD COUNT (AUTO) 16.5 K/uL (4.3-11.0)
--- NOTE | 2022-08-15 06:55 | NUR ---
RN NOTE Pt remains in stable condition. VSS. No significant changes noted throughout the shift. All due medications given as ordered, no ASE noted. Kept pt NPO PMN as ordered to prep for CT abd, chest, and pelvis and NM HIDA today. NS at 125ml/hr infusing to RAC #22G, well jordyn. All needs attended. Will endorse to incoming shift nurse for continuity of care.
[2022-08-15] MEDS: PANTOPRAZOLE 40 MG TABLET.DR PO SCH (07:30)
--- NOTE | 2022-08-15 07:35 | NUR ---
GENERAL SERVICE TECHNICIAN OPENING NOTE Received pt in bed, alert, awake, orientedx4, verbally responsive. Denies pain or discomfort at this time. On room air, well jordyn, no sob AT THOS TIME. ON TELE MONITOR. PIV access om RAC #20G, patent, infusing NS at 125ml/hr. ALL Safety precaution implemented, bed locked and in lowest position. BED ALARM ON.SIDE RAILS UP X2.
[2022-08-15 07:49] LABS: CALCIUM, SERUM 8.9 mg/dL (8.5-10.1); CREATININE 0.9 mg/dL (0.6-1.3); MAGNESIUM 1.9 mg/dL (1.8-2.4); POTASSIUM 3.9 mmol/L (3.5-5.1)
[2022-08-15 08:00] VITALS: BP 139/76; TEMP 97.9
--- NOTE | 2022-08-15 09:39 | NUR ---
WOUND CARE CONSULT: PT PRESENTS WITH ULCER TO RT PLANTAR FOOT AND VERY RED, SWOLLEN CHIN AREA, PRESENT ON ADMISSION. DR ADAMS CALLED FOR DPM CONSULT. RECOMMEND SURGICAL CONSULT/FOLLOW UP FOR CHIN. DISCUSSED SKIN PROTECTION WITH NURSING STAFF. IN AGREEMENT WITH PLAN OF CAR.E Addendum: 08/15/22 at 0949 by BAMBI BALES WNDNU MSG LEFT FOR DR EMILIA RUST REGARDING RED, SWOLLEN CHIN AREA.
--- NOTE | 2022-08-15 09:42 | NUR ---
rn note unable to give insulin coverage for 291, pt currently at procedure
--- NOTE | 2022-08-15 09:42 | NUR ---
rn note pt left for HIDA scan
[2022-08-15] MEDS ORDERED: DEXTROSE 50%-WATER 50 ML DISP.SYRIN IV PRN (10:00)
[2022-08-15] MEDS ORDERED: IOHEXOL-300 100 ML VIAL IV ONE (10:52)
[2022-08-15] MEDS ORDERED: IV NS 0.9% 250 ML IV ONE (10:52)
[2022-08-15] MEDS ORDERED: CT SWABBABLE VALVE TRANS SET 1 EA INFUS.SET MC ONE (10:52)
[2022-08-15 12:00] VITALS: BP 145/83; TEMP 97.8
--- NOTE | 2022-08-15 15:26 | NUR ---
"SS consult: SS consult requested for homelessness. Pt. is a 56 year old male who was brought to the hospital on 08/14/2022 due to Hyperglycemia. Upon SS consult, pt. was alert and oriented x3. Pt was cooperative with the social group worker. Pt stated that he has been homeless he stated that he has been homeless for the past 15 years. He stated three years ago he was living with family, however, he is currently homeless and unemployed. He reported that he is trying to get disability and SSI and stated that it is in the process. He reported that he will be living with his daughter Елена ([phone]) at [id number] [place] [address]. Pt denied suicidal or homicidal ideation. Pt denied visual/auditory hallucinations. SW assessed for substance abuse and pt denied. Pt was accepting of homeless resources. Pt signed homeless waiver and it was placed in the chart. DC Plan: Pt. stated that he wants to be discharged to daughter's home with Елена ([phone]) located at [phone] [facility] [address] [address]. Year-round shelters: [facility] [address], [place] [id number] ; [facility] [address] [place] [address]; [facility] [address] [facility] [address] Winter Shelters: SPA 2 | [facility] Address: Confidential (call for location ) Population Served: Coed # of Beds: 57 SPA 4 | [facility] Provider: [facility] Address: [id number] [place] [address], [address] # of Beds: 49 Population Served: Coed SPA 6 | [facility] Provider: [facility] Last Address: [address] [facility], [address] # of Beds: 49 Population Served: Coed [facility] Provider: N[facility] Address: [address] [place] [address] Ave [facility] [address] # of Beds: 20 Population Served: Women [facility] Facility Provider: Home at Last Address: [address] [facility] [address] # of Beds: 30 Population Served: Women SPA 8 | [facility] Provider: Alexis [facility] Address: [address] [facility] [address] # of Beds: 65 Population Served: Coed Hygiene: [facility]: [address] [place] [address] [place] ; [facility] [address] [facility] ; [facility] [address] [facility] [place] . Food Resources: [place] [facility] at [facility]- [address] [facility]; Meet Each Need with Dignity ([facility]) [address] [facility] [place]; [facility] [address] [facility]; [facility] [address] [facility]. Mental Health resources provided: [facility] [address] [place], [place] [phone] ; [facility] [address] [facility] [address], [place], [place] [phone] ; Lucy [facility]ne [facility] [address], [place] [phone] ; [facility] [address] [place], [place] [address] Healthcare Clinics: [facility] [address] [facility], [address] [place]. [place] ; [facility] [address] [facility] [address] [place] [address]; [facility] [address] [facility]. [place] [phone] Counseling--Outpatient [facility] [address] [facility] [address], [place] [address] (Specializes in in-depth psychotherapy for emotional distress: anxiety, depression, interpersonal conflicts, life transitions, childhood abuse) [facility] [address] [place], [place] [phone] (Assist with solving problem marital difficulties, separation & divorce, aging parents, & grief, chronic & terminal illness) [facility] [address] [place] [address] (Deal with loss & grief, anxiety, marital difficulties) Homebound/Mental Health Services [address] [facility] [address] [place], [place] [phone] (Provide in-home mental services to people who are incapable of leaving their homes) [facility] [address] [place] [address] [facility] [address] [place], [place] [phone] PSYCHIATRIC OUTPATIENT SERVICES [facility] Partial Hospitalization and Intensive Outpatient Program (Managed Care and [place] Only) [address] [facility] [id number] [facility] Partial Hospitalization and Outpatient Program [address] [place], [place] [phone] [facility] [address] [place], [place] [phone] [facility] Partial Hospitalization and Outpatient Program [address] [address] [place], [place] [phone] "
[2022-08-15 16:00] VITALS: BP 130/77; TEMP 98.8
--- NOTE | 2022-08-15 19:12 | NUR ---
HAND WINDER CLOSING NOTE pt in bed, alert, awake, orientedx4, verbally responsive. Denies pain or discomfort at this time. On room air, well jordyn, no sob AT THOS TIME. ON TELE MONITOR SR 75 PIV access om RAC #20G, patent, infusing NS at 125ml/hr. ALL Safety precaution implemented, bed locked and in lowest position. BED ALARM ON.SIDE RAILS UP X2.ENDORSED TO PERSONNEL CLERKS SUPERVISOR RN FOR CONTUITY OF CARE
--- NOTE | 2022-08-15 19:30 | NUR ---
HYDROELECTRIC STATION OPERATOR OPENING NOTE Pt in bed, alert, awake, orientedx4, verbally responsive. Denies pain or discomfort at this time. On room air, well jordyn, no sob. On tele monitor SR. PIV access on RAC #20G, flushed, patent and intact, running NS at 125 ml/hr. All Safety precaution implemented, bed locked and in lowest position. Call light within reach, bed alarm on, SR up X2. Will continue to monitor.
[2022-08-15 20:00] VITALS: BP 145/88; TEMP 98.1
[2022-08-15] MEDS: INSULIN GLARGINE, 100 UNIT/ML CARTRIDGE SQ SCH (21:03)
[2022-08-16] VITALS: BP 148/79; TEMP 98.3
[2022-08-16] MEDS: BLOOD SUGAR DIAGNOSTIC 1 EACH STRIP IN SCH ×6 (01:27→21:17)
[2022-08-16] MEDS: INSULIN REGULAR, HUMAN 100 UNIT/ML 3 ML VIAL SQ PRN ×4 (01:29→21:18)
[2022-08-16] MEDS: ZOSYN IVPB 3.375 G in IV D5W 50ml IV SCH ×4 (01:33→21:08)
[2022-08-16 04:00] VITALS: BP 145/75; TEMP 98.2
[2022-08-16] MEDS: IV NS 0.9% 1,000 ML IV PRN ×2 (05:27→15:56)
[2022-08-16 05:43] LABS: BASOPHILS # (AUTO) 0.1 K/uL (0.0-0.2); BASOPHILS % (AUTO) 0.6 % (0.0-2.0); EOSINOPHILS % (AUTO) 2.4 % (0.0-6.0); HEMATOCRIT 39 % (39-51); HEMOGLOBIN 12.6 g/dL (13.5-17.5); LYMPHOCYTES # (AUTO) 2.8 K/uL (0.8-4.8); LYMPHOCYTES % (AUTO) 17.4 % (20.0-44.0); MEAN CORPUSCULAR HGB CONC 32 g/dl (31.0-36.0); MEAN CORPUSCULAR VOLUME 84 fL (80-96); MONOCYTES # (AUTO) 1.2 K/uL (0.1-1.30); MONOCYTES % (AUTO) 7.4 % (2.0-12.0); NEUTROPHILS # (AUTO) 11.6 K/uL (1.8-8.9); NEUTROPHILS % (AUTO) 72.2 % (43.0-81.0); PLATELET COUNT (AUTO) 330 K/uL (150-450); RED BLOOD CELL COUNT(AUTO) 4.64 MIL/uL (4.5-6.0); WHITE BLOOD COUNT (AUTO) 16.1 K/uL (4.3-11.0)
[2022-08-16 05:59] LABS: BILIRUBIN,TOTAL 0.4 mg/dL (0.2-1.0); CALCIUM, SERUM 8.5 mg/dL (8.5-10.1); MAGNESIUM 1.8 mg/dL (1.8-2.4); POTASSIUM 3.8 mmol/L (3.5-5.1); TOTAL PROTEIN, SERUM 6.9 g/dL (6.4-8.2)
--- NOTE | 2022-08-16 06:31 | NUR ---
BEHAVIORAL SCIENCES DEPARTMENT CHAIR CLOSING NOTE Pt in bed, sleeping. When awake, oriented x 4, verbally responsive. Denies pain or discomfort at this time. On room air, no sob, oxygen saturation 94%. On tele monitor SR, HR 79. PIV access on RAC #20G, flushed, patent and intact, running NS at 125 ml/hr. Insulin was held after midnight, patient is NPO. All Safety precaution implemented, bed locked and in lowest position. Call light within reach, bed alarm on, SR up X2. Will endorse to the next shift for TUCKER.
--- NOTE | 2022-08-16 07:26 | NUR ---
WOUND CARE FOLLOW UP: DISCUSSED CHIN REDNESS/SWELLING AND TENDERNESS WITH SURGICAL TEAM CURRENTLY ON CASE AND PER DR RUST, ENT OR PLASTICS CONSULT RECOMMENDED. DR WASSERMAN CALLED FOR CHIN CONSULT. IN AGREEMENT WITH PLAN OF CARE.
[2022-08-16] MEDS: PANTOPRAZOLE 40 MG TABLET.DR PO SCH (07:53)
[2022-08-16 08:00] VITALS: BP 126/72; TEMP 98.9
[2022-08-16 08:06] LABS: IMMUNOGLOBULIN A, SERUM 1150 mg/dL (90-386); IMMUNOGLOBULIN G, SERUM 1943 mg/dL (603-1613); IMMUNOGLOBULIN M, SERUM 111 mg/dL (20-172)
[2022-08-16] MEDS: PROSOURCE / PROSTAT (PYXIS) 30 ML UDC GT SCH ×3 (09:00→17:19)
[2022-08-16 09:07] LABS: AFP, TUMOR MARKER 2.1 ng/mL (0.0-8.4)
[2022-08-16 12:06] LABS: CARBOHYDRATE AG 19-9 7316 U/mL (0-35)
[2022-08-16] MEDS: THERAHONEY GEL 1.5 OZ TUBE TP SCH (12:16)
[2022-08-16] MEDS ORDERED: FLUMAZENIL 0.5 MG VIAL IV PRN (13:00)
[2022-08-16] MEDS ORDERED: NALOXONE PREFILLED SYRINGE 2 MG/2 ML SYRINGE IV PRN (13:00)
[2022-08-16] MEDS ORDERED: MIDAZOLAM HCL 2 MG/2ML VIAL IV PRN (13:00)
--- NOTE | 2022-08-16 14:30 | NUR ---
RN NOTE PATIENT LEFT ROOM FOR BIOPSY AT THIS TIME. DAUGHTER REMAINS AT BEDSIDE
[2022-08-16] MEDS: FENTANYL PF 250MCG/5ML AMPUL IV PRN ×2 (15:29→15:32)
--- NOTE | 2022-08-16 15:50 | NUR ---
RN NOTE PATIENT RETURNED TO ROOM ACCOMPANIED BY ROSENDA. PATIENT STATES HE HAS PAIN AT THE BIOPSY SITE, LEVEL 8/10. NO S/S OF BLEEDING AT SITE.
[2022-08-16] MEDS: HYDROCODONE/APAP 5/325MG TABLET PO PRN ×2 (17:46→22:27)
[2022-08-16] MEDS: IV NS 0.9% 1,000 ML IV SCH (18:21)
--- NOTE | 2022-08-16 19:06 | NUR ---
QUALITY ASSURANCE ASSESSOR CLOSING NOTE Pt in bed awake &oriented x 4, verbally responsive. Denies pain or discomfort at this time. On room air, no sob, oxygen saturation 94%. HR PIV access on RAC #20G and left forearm #18g, flushed, patent and intact, running NS at 75 ml/hr. Insulin was held during this shift. Pt is now on soft diet. Family at bedside. All Safety precaution implemented, bed locked and in lowest position. Call light within reach, bed alarm on, . Will endorse to security shift manager RN.
--- NOTE | 2022-08-16 19:30 | NUR ---
GLORY HOLE TENDER OPENING NOTE Pt in bed awake &oriented x 4, verbally responsive. Denies pain or discomfort at this time. On room air, no sob or distress noted. PIV access on RAC #20G and left forearm #18g, flushed, patent and intact, running NS at 75 ml/hr. Insulin was held during this shift. Pt is now on soft diet. Family at bedside. All Safety precaution implemented, bed locked and in lowest position. Call light within reach, bed alarm on, . Will continue to monitor.
--- NOTE | 2022-08-16 19:31 | NUR ---
IV ACCESS ON LFA #20G RUNNING NS @ 75MLS/HR. NO S/S OF BLEEDING ON LIVER BIOPSY SITE. NO S/S OF BLEEDING ON RIGHT HEEL OF FOOT FROM DEBRIDEMENT TODAY.
[2022-08-16 20:00] VITALS: BP 150/84; TEMP 97.8
[2022-08-16] MEDS: INSULIN GLARGINE, 100 UNIT/ML CARTRIDGE SQ SCH (21:20)
[2022-08-17] MEDS: BLOOD SUGAR DIAGNOSTIC 1 EACH STRIP IN SCH ×4 (01:13→12:48)
[2022-08-17] MEDS: INSULIN REGULAR, HUMAN 100 UNIT/ML 3 ML VIAL SQ PRN ×4 (01:16→12:49)
[2022-08-17] MEDS: ZOSYN IVPB 3.375 G in IV D5W 50ml IV SCH ×3 (02:10→13:59)
[2022-08-17 04:00] VITALS: BP 130/69; TEMP 98.1
[2022-08-17] MEDS: IV NS 0.9% 1,000 ML IV SCH (05:47)
--- NOTE | 2022-08-17 06:15 | NUR ---
PRINT PRODUCTION COORDINATOR CLOSING NOTE Pt in bed awake & oriented x 4, verbally responsive. Denies pain or discomfort at this time. On room air, no sob or distress noted. IV access at left forearm #20g, flushed, patent and intact, running NS at 75 ml/hr. Pt is now on soft diet. Family at bedside. All Safety precaution implemented, bed locked and in lowest position. Call light within reach, bed alarm on, . Will endorse albert to am shift rn.
[2022-08-17 06:24] LABS: CALCIUM, SERUM 8.6 mg/dL (8.5-10.1); POTASSIUM 3.7 mmol/L (3.5-5.1)
[2022-08-17 06:26] LABS: BASOPHILS # (AUTO) 0.1 K/uL (0.0-0.2); BASOPHILS % (AUTO) 0.5 % (0.0-2.0); EOSINOPHILS % (AUTO) 2.4 % (0.0-6.0); HEMATOCRIT 37 % (39-51); HEMOGLOBIN 11.8 g/dL (13.5-17.5); LYMPHOCYTES # (AUTO) 2.9 K/uL (0.8-4.8); MEAN CORPUSCULAR HGB CONC 32 g/dl (31.0-36.0); MEAN CORPUSCULAR VOLUME 84 fL (80-96); MONOCYTES # (AUTO) 1.3 K/uL (0.1-1.30); MONOCYTES % (AUTO) 9.5 % (2.0-12.0); NEUTROPHILS # (AUTO) 9.3 K/uL (1.8-8.9); NEUTROPHILS % (AUTO) 66.6 % (43.0-81.0); PLATELET COUNT (AUTO) 296 K/uL (150-450); RED BLOOD CELL COUNT(AUTO) 4.38 MIL/uL (4.5-6.0); WHITE BLOOD COUNT (AUTO) 13.9 K/uL (4.3-11.0)
[2022-08-17] MEDS: PANTOPRAZOLE 40 MG TABLET.DR PO SCH (07:30)
--- NOTE | 2022-08-17 07:30 | NUR ---
RN OPENING NOTE RECEIVED Pt in bed awake &oriented x 4, verbally responsive. Denies pain or discomfort at this time. On room air, no sob or distress noted. PIV access on RAC #20G and left forearm #18g, flushed, patent and intact, running NS at 75 ml/hr. All Safety precaution implemented, bed locked and in lowest position. Call light within reach, bed alarm on, .
[2022-08-17 08:00] VITALS: BP 149/62; TEMP 98.1
[2022-08-17] MEDS ORDERED: IV NS 0.9% 1,000 ML IV PRN (08:03)
[2022-08-17] MEDS: PROSOURCE / PROSTAT (PYXIS) 30 ML UDC GT SCH ×2 (08:34→13:00)
[2022-08-17 10:07] LABS: *SPE A/G RATIO 0.6 (0.7-1.7); *SPE ALPHA-1-GLOBULIN 0.5 g/dL (0.0-0.4); *SPE ALPHA-2-GLOBULIN 1.3 g/dL (0.4-1.0); *SPE BETA GLOBULIN 1.9 g/dL (0.7-1.3); *SPE M-SPIKE Not Observed g/dL (Not Observed)
[2022-08-17] MEDS: THERAHONEY GEL 1.5 OZ TUBE TP SCH (10:32)
--- NOTE | 2022-08-17 11:38 | NUR ---
rn note notified that pt wants to go home
--- NOTE | 2022-08-17 12:12 | NUR ---
rn note notified that pt wants to speak with AMA. said spoke with pt earlier in the morning
--- NOTE | 2022-08-17 14:23 | NUR ---
rn note notified that pt wants to be cleared for dischaged and strongly insists on going AMA, but patient refuses to wait and eager to go home despite education and teaching provided. still wants to go AMA
--- NOTE | 2022-08-17 14:23 | NUR ---
rn note notified that pt wants to be cleared for dischage
--- NOTE | 2022-08-17 15:01 | NUR ---
rn ama note explained risks of leaving AMA. verbalized understanding and still insisted on leaving AMA. signed AMA form.
--- NOTE | 2022-08-17 15:02 | NUR ---
rn note notified that pt left ELISABETH. aware
--- NOTE | 2022-08-17 15:02 | NUR ---
RN AMA DISCHARGE NOTE PT SIGNED AMA PAPERWORK. PT LEFT IN STABLE CONDITION. PT ALERT AND ORIENTED X4, INDEPENDENT AND VOLUNTARY, ABLE TO MAKE DECISIONS FOR HIMSELF. REMOVED IV. WENT OVER IF PT EXPERIENCES ANY PAIN,DISCOMFORT OR NOTICES ANY HEALTH CHANGES TO GO TO NEAREST ER. PT VERBALIZED UNDERSTANDING AND AGREED. ESCORTED OUT BY WHEELCHAIR WITH POST COMMANDER. NOTIFIED . AWARE
== END 2022-08-17 15:03 | disposition left against medical advice (07) | DRG 420 ==
LOC: ER 11:41 → MEDSG1 15:23 → TELE1 15:42 → MEDSG1 08-16 09:06
PROVIDERS: ATTEND Internal Medicine
PROC: 0JBQ0ZZ Excision of Right Foot Subcutaneous Tissue and Fascia, Open Approach (ICD-10-PCS; principal; 2022-08-16)
PROC: 0FB13ZX Excision of Right Lobe Liver, Percutaneous Approach, Diagnostic (ICD-10-PCS; 2022-08-16)
DX: E11.65 Type 2 diabetes mellitus with hyperglycemia (principal); N17.0 Acute kidney failure with tubular necrosis; K80.00 Calculus of gallbladder with acute cholecystitis without obstruction; E88.09 Other disorders of plasma-protein metabolism, not elsewhere classified; E87.1 Hypo-osmolality and hyponatremia; E11.42 Type 2 diabetes mellitus with diabetic polyneuropathy; D64.9 Anemia, unspecified; L03.211 Cellulitis of face; L97.519 Non-pressure chronic ulcer of other part of right foot with unspecified severity; F15.90 Other stimulant use, unspecified, uncomplicated; K86.9 Disease of pancreas, unspecified; K76.9 Liver disease, unspecified; Z88.8 Allergy status to other drugs, medicaments and biological substances; Z79.4 Long term (current) use of insulin; R74.8 Abnormal levels of other serum enzymes; F17.200 Nicotine dependence, unspecified, uncomplicated; E11.621 Type 2 diabetes mellitus with foot ulcer; R59.0 Localized enlarged lymph nodes; Z53.29 Procedure and treatment not carried out because of patient's decision for other reasons; Z59.00 Homelessness unspecified; Z91.148 Patient's other noncompliance with medication regimen for other reason; Z91.199 Patient's noncompliance with other medical treatment and regimen due to unspecified reason
CPT/HCPCS: 36415; 71045-TC; 71270-TC; 74178; 76705-TC; 76942-TC; 78226; 80048-TC; 80053-TC; 80076-TC; 81001; 82105; 82378; 82607-TC; 82728-TC; 82784; 82962-TC; 83540-TC; 83605-TC; 83690-TC; 83735-TC; 84100-TC; 84155; 84165; 84443-TC; 85025-TC; 85396; 85610-TC; 85730-TC; 86301; 86334; 87040-TC; 87081-TC; 87086-TC; A4223; A9537; G0378; J1815; J2405; J2543; J3010; J3370; J7030; J7050; J7060; Q9967

== ENCOUNTER 2022-10-04 23:46 | Emergency (ER) | payer OTHER ==
[~2022-10-04] VITALS: Ht 182.9 cm; Wt 85.3 kg
[~2022-10-04 23:46] MED LIST changes: +INSU100I26 SQ; -INSU100V7 SQ; +ONDA4TAB5 PO
[2022-10-04 23:51] VITALS: TEMP 98.7
[2022-10-05] MEDS: IV NS 0.9% 1,000 ML BAG IV ONE ×2 (01:00→04:20)
[2022-10-05 01:03] LABS: BASOPHILS # (AUTO) 0.1 K/uL (0.0-0.2); BASOPHILS % (AUTO) 0.5 % (0.0-2.0); EOSINOPHILS # (AUTO) 0.3 K/uL (0.0-0.7); EOSINOPHILS % (AUTO) 1.7 % (0.0-6.0); HEMATOCRIT 38 % (39-51); HEMOGLOBIN 12.2 g/dL (13.5-17.5); LYMPHOCYTES % (AUTO) 11.1 % (20.0-44.0); MEAN CORPUSCULAR HEMOGLOBIN 26 PG (26.0-33.0); MEAN CORPUSCULAR HGB CONC 32 g/dl (31.0-36.0); MEAN CORPUSCULAR VOLUME 80 fL (80-96); MONOCYTES # (AUTO) 1.7 K/uL (0.1-1.30); MONOCYTES % (AUTO) 9.2 % (2.0-12.0); NEUTROPHILS # (AUTO) 13.8 K/uL (1.8-8.9); NEUTROPHILS % (AUTO) 77.5 % (43.0-81.0); PLATELET COUNT (AUTO) 290 K/uL (150-450); RED BLOOD CELL COUNT(AUTO) 4.71 MIL/uL (4.5-6.0); RED CELL DISTRIBUTION WIDTH 14.1 % (11.5-15.0); WHITE BLOOD COUNT (AUTO) 17.9 K/uL (4.3-11.0)
[2022-10-05 01:17] LABS: ALANINE AMINOTRANSFERASE 88 U/L (12-78); ALBUMIN 2.3 g/dL (3.4-5.0); ALKALINE PHOSPHATASE 742 U/L (46-116); ASPARTATE AMINOTRANSFERASE 40 U/L (15-37); BILIRUBIN,DIRECT 0.4 mg/dL (0.0-0.2); BILIRUBIN,TOTAL 0.8 mg/dL (0.2-1.0); CALCIUM, SERUM 9.9 mg/dL (8.5-10.1); CARBON DIOXIDE 29 mmol/L (21-32); CHLORIDE 93 mmol/L (98-107); CREATININE 1.1 mg/dL (0.6-1.3); LIPASE 214 U/L (73-393); POTASSIUM 5.2 mmol/L (3.5-5.1); SODIUM SERUM 129 mmol/L (136-145); TOTAL PROTEIN, SERUM 8.4 g/dL (6.4-8.2); UREA NITROGEN, BLOOD 29 mg/dL (7-18)
[2022-10-05 01:24] LABS: GLUCOSE 455 mg/dL (74-106)
[2022-10-05] MEDS ORDERED: INSULIN REGULAR, HUMAN 100 UNIT/ML 10 ML VIAL ONE (01:26)
[2022-10-05] MEDS ORDERED: ONDANSETRON HCL/PF 4 MG/2 ML VIAL ONE (01:27)
[2022-10-05] MEDS ORDERED: MORPHINE SULFATE INJ 4 MG/ML DISP.SYRIN ONE (01:27)
[2022-10-05] MEDS: MORPHINE SULFATE INJ 2 MG/ML DISP.SYRIN IV ONE (01:30)
[2022-10-05] MEDS: INSULIN REGULAR, HUMAN 100 UNIT/ML 10 ML VIAL IV ONE (01:30)
[2022-10-05] MEDS: ONDANSETRON HCL/PF 4 MG/2 ML VIAL IVP ONE (01:30)
[2022-10-05] MEDS ORDERED: IOHEXOL-350 100 ML VIAL IV ONE (01:33)
[2022-10-05 03:06] LABS: APPEARANCE,URINE CLEAR (CLEAR); BILIRUBIN,URINE NEGATIVE (NEGATIVE); BLOOD, URINE TRACE-INTA Ery/uL (NEGATIVE); COLOR,URINE YELLOW (YELLOW); KETONES,URINE NEGATIVE (NEGATIVE); LEUKOCYTE ESTERASE ,URINE NEGATIVE (NEGATIVE); NITRITE, URINE NEGATIVE (NEGATIVE); PH,URINE 6.5 (5.0-8.0); PROTEIN,URINE 1+ mg/dl (NEGATIVE); UGLUCOSE 3+ mg/dL (NEGATIVE); UROBILINOGEN,URINE 0.2 EU/dL (0.2)
[2022-10-05 03:20] LABS: ADD URINE CULTURE NO; BACTERIA,URINE None seen /HPF (None Seen); RBC,URINE 0-2 /HPF (0-2); WBC,URINE NONE SEEN /HPF (0-3)
[2022-10-05 03:21] LABS: MUCUS,URINE Few /LPF (None Seen); SQUAMOUS EPITHELIAL CELL,UR None Seen /HPF (None Seen)
[2022-10-05] MEDS ORDERED: ONDA4TAB5 PO (04:08)
[2022-10-05] MEDS ORDERED: HYDROCODONE/APAP 5/325MG TABLET ONE (05:24)
[2022-10-05] MEDS: HYDROCODONE/APAP 5/325MG TABLET PO ONE (05:43)
[2022-10-05 05:54] VITALS: BP 142/81; O2SAT 95
== END 2022-10-05 06:25 | disposition home or self-care (01) ==
LOC: ER 23:46
DX: C22.9 Malignant neoplasm of liver, not specified as primary or secondary (principal); K76.6 Portal hypertension; R79.89 Other specified abnormal findings of blood chemistry; R11.2 Nausea with vomiting, unspecified; F17.200 Nicotine dependence, unspecified, uncomplicated; Z88.8 Allergy status to other drugs, medicaments and biological substances; Z60.2 Problems related to living alone
CPT/HCPCS: 99285; 93005; 71275; 96374; 96361; 96375; 74176; 85025; 80048; 83690; 80076; 81001; 36415 ×2; 84484 ×2; 82962 ×5; J1815; J2270; J2405; J7030; Q9967